=== PATIENT | female | born 1960 | race Caucasian/White ===

== ENCOUNTER → 2024-03-21 14:24 | Outpatient (BNVA) | payer MEDICARE, BC, SELFPAY | PROVIDERS: PCP Internal Medicine; Referring Provider Internal Medicine; Visit Provider Internal Medicine | DX: R06.09 Other forms of dyspnea (principal); R01.1 Cardiac murmur, unspecified; I10 Essential (primary) hypertension; L30.9 Dermatitis, unspecified; Z87.891 Personal history of nicotine dependence; Z87.898 Personal history of other specified conditions | CPT/HCPCS: 99205; G2212 ==